=== PATIENT | female | born 2000 | race Caucasian/White ===

== ENCOUNTER 2022-04-18 18:02 | Emergency (ER) | payer OTHER, BC, SELFPAY ==
--- NOTE | ~2022-04-18 | XR_ITS ---
XR foot LT min 3V DATE: 04/18/2022 18:26 INDICATION: Injury last night. Fifth toe and distal fifth metatarsal pain TECHNIQUE: 4 views COMPARISON: None FINDINGS: No fracture or dislocation, periosteal reaction or bone destruction. IMPRESSION: Negative Reviewed, dictated and finalized at location A. IMPRESSION: Negative
--- NOTE | 2022-04-18 18:07 | ED.LOWEXIN ---
HPI - Extremity Injury (Lower) General Chief Complaint: Extremity Injury, Lower Stated Complaint: Lt Foot Pain Time Seen by Provider: 04/18/22 18:06 Source: patient Mode of arrival: ambulatory Limitations: no limitations History of Present Illness HPI Narrative: On exam Krishan is a 21-year-old female patient presenting to clinic today with complaints of left-sided foot pain. She reports she hit her 5th toe, lateral foot on a wooden toy last night. She reports that she was walking at a pretty decent speed when this occurred. She is unaware if she hyperextended the toe or stubbed the toe. There is bruising swelling and redness to the left 5th toe Related Data Home Medications Medication Instructions Recorded Confirmed No Home Medications 04/18/22 04/18/22 Allergies Allergy/AdvReac Type Severity Reaction Status Date / Time No Known Allergies Allergy Verified 04/18/22 18:06 Review of Systems Review of Systems: Pertinent positives per HPI. Patient denies any fever, chills, rash, headache, visual changes, dizziness, cough, runny nose, sore throat, shortness of breath, chest pain, palpitations, nausea, vomiting, diarrhea, constipation, abdominal pain, or any urinary issues. PMFSH Comments At the time of my signature, I reviewed and agree with the nursing past medical, surgical, social, and family history. There is no relevant family history pertinent to the patient complaint. Exam Narrative: General: Well-developed, well nourished, in no apparent distress Head: Normocephalic, atraumatic. Cardio: Regular rate and rhythm, s1 and s2 normal, no murmur appreciated. Resp: Clear to auscultation bilaterally, no rhonchi, rales, wheezing or rubs. Musculoskeletal: No deformity, swelling, redness, and bruising to the left 5th, tender to palpation over the left 5th toe and distal metatarsal, pain with flexion and extension of the left 5th toe otherwise grossly normal range of motion, muscle strength strong and equal, peripheral pulse strong, no cyanosis, normal gait and station Course Course Emergency Course: Portions of this record may have been created with voice recognition software. Level of Care: Express Care Visit Vital Signs Vital signs: Vital Signs Temperature 36.5 C 04/18/22 18:17 Pulse Rate 83 04/18/22 18:17 Respiratory Rate 18 04/18/22 18:17 Blood Pressure 123/72 11/04/22 18:17 Pulse Oximetry 100 04/18/22 18:17 Oxygen Delivery Room Air 04/18/22 18:17 Temperature 36.5 C 04/18/22 18:17 Pulse Rate 83 04/18/22 18:17 Respiratory Rate 18 04/18/22 18:17 Blood Pressure 123/72 04/18/22 18:17 Pulse Oximetry 100 04/18/22 18:17 Oxygen Delivery Room Air 04/18/22 18:17 Vital signs reviewed MDM - Extremity Injury (Lower) MDM Narrative Medical decision making narrative: At the time of visit patient is resting comfortably on the exam table. X-ray was performed and was negative for any fracture or malalignment of the left 5th toe or the left foot. I suspect the patient has a left 5th toe sprain. Supportive measures were discussed with the patient she voiced understanding of discharge instructions and agrees to treatment plan. Fifth toe was sherine-taped to the 4th toe in the clinic today. Differential Diagnosis Differential diagnosis: Likely fracture of toe (Toe sprain) Imaging Data Radiologist's impression: [address] [address] XRay Report Signed Patient: Tiffany Brunner : 2000 MR#: [id number] Age/Sex: 21 / F Acct:[id number] Loc: [facility]? ? ADM Date: 04/18/22Attending Dr: Ordering Physician: Percy John APRN Date of Service: 04/18/22 Procedure(s): XR foot LT min 3V Accession Number(s): [id number] cc: Percy John APRN; RELEASE OF INFORMATION SPECIALIST PHYSICIAN~ XR foot LT min 3V DATE: 04/18/2022 18:26 INDICATION: Injury last night. Fifth toe and distal fifth metat
[2022-04-18 18:17] VITALS: BP 123/72; PULSE 83; RESP 18; TEMP 36.5; O2SAT 100
== END 2022-04-18 18:38 | disposition home or self-care (01) ==
PROVIDERS: Emergency Provider Nurse Practitioner Family
DX: S93.505A Unspecified sprain of left lesser toe(s), initial encounter (principal); W22.8XXA Striking against or struck by other objects, initial encounter
CPT/HCPCS: 73630; 99213; G0463

== ENCOUNTER 2023-09-09 13:22 | Emergency (ER) | payer BC, OTHER, SELFPAY ==
[2023-09-09 13:40] VITALS: BP 129/78; PULSE 101; RESP 16; TEMP 36.4; O2SAT 100
[2023-09-09 13:41] VITALS: BP 129/78; PULSE 101; RESP 16; TEMP 36.4; O2SAT 100
--- NOTE | 2023-09-09 13:50 | ED.URI ---
HPI - URI/Sore Throat General Chief Complaint: Upper Respiratory Infection Stated Complaint: Sore Throat and Congestion Time Seen by Provider: 09/09/23 13:41 Source: patient and RN notes reviewed Mode of arrival: ambulatory Limitations: no limitations History of Present Illness HPI Narrative: Patient presents today complaining of 3-4 day history of sore throat, nasal congestion, cough, sweats and chills. No known fever. No shortness of breath or difficulty swallowing. She has been taking Tylenol with some mild relief. Fourteen weeks currently. Related Data Home Medications Medication Instructions Recorded Confirmed vit#24-iron amino acid 1 tablet PO DAILY 09/09/23 09/09/23 chelat-folic acid 30 mg-975 mcg tablet sertraline 100 mg tablet 100 mg PO DAILY 09/09/23 09/09/23 Allergies Allergy/AdvReac Type Severity Reaction Status Date / Time No Known Allergies Allergy Verified 09/09/23 13:31 Review of Systems Review of Systems: CONSTITUTIONAL: Denies body aches. + fever, sweats, chills EYES: Denies visual changes, redness, or discharge. ENT: Denies rhinorrhea, or otalgia.+ congestion, sore throat CARDIOVASCULAR: Denies chest pain, palpitations, or edema. RESPIRATORY: Denies dyspnea.+ cough GASTROINTESTINAL: Denies abdominal pain, nausea, vomiting, or diarrhea. GENITOURINARY: Denies dysuria or hematuria. SKIN: Denies rash, itching, or wounds. MUSCULOSKELETAL: Denies back pain, joint pain, or myalgia. NEUROLOGIC: Denies headache, numbness, tingling, or weakness. PSYCH: Denies depression or anxiety. PMFSH Comments At time of signature, I have reviewed and agree with nursing past medical, surgical, social and family history unless otherwise noted. Please see nursing chart for further information. There is no relevant family history pertinent to the presenting complaint Exam Narrative: GENERAL: Mildly ill-appearing, well-nourished, and in no acute distress. HEAD: Normocephalic, atraumatic. EYES: EOMI. No redness or drainage. Conjunctivae normal. ENT: Mucous membranes pink and moist. Nares congested. No rhinorrhea. TMs normal bilaterally. Throat normal. Uvula midline. NECK: Normal AROM. Supple. No lymphadenopathy. CHEST: No respiratory distress. Clear to auscultation. HEART: Regular rate and rhythm. No murmur appreciated. EXTREMITIES: Normal range of motion. No edema. SKIN: Warm, dry, no rash. Capillary refill normal. Normal skin turgor. NEURO: No focal deficits. Alert and oriented x3. Gait steady. PSYCH: Normal affect. No signs of depression or anxiety. Course Course Level of Care: Express Care Visit Vital Signs Vital signs: Vital Signs Temperature 97.6 F 09/09/23 13:40 Pulse Rate 101 H 09/09/23 13:40 Respiratory Rate 16 09/09/23 13:40 Blood Pressure 129/78 09/09/23 13:40 Pulse Oximetry 100 09/09/23 13:40 Oxygen Delivery Room Air 09/09/23 13:40 Temperature 97.6 F 09/09/23 13:41 Pulse Rate 101 H 09/09/23 13:41 Respiratory Rate 16 09/09/23 13:41 Blood Pressure 129/78 09/09/23 13:41 Pulse Oximetry 100 09/09/23 13:41 Oxygen Delivery Room Air 09/09/23 13:41 Reviewed MDM - URI/Sore Throat MDM Narrative Medical decision making narrative: Rapid strep negative. Culture pending. Patient declines testing for COVID and influenza. Symptoms likely viral in etiology. Discussed [id number] medication use and duration of illness. No prescription medications indicated at this time. Anticipatory guidance given Differential Diagnosis Differential diagnosis: Likely upper respiratory infection, sinusitis, viral infection, bronchitis, influenza, pharyngitis and other (Strep throat, COVID) Lab Data Attestation: I reviewed the patient's lab results. Lab results narrative: Rapid strep negative Critical Care Time Critical Care Time Critical Care Time: No Discharge Plan Discharge Clinical Impression: Viral syndrome
== END 2023-09-09 13:53 | disposition home or self-care (01) ==
PROVIDERS: Emergency Provider Nurse Practitioner
DX: O98.512 Other viral diseases complicating pregnancy, second trimester (principal); B33.8 Other specified viral diseases; Z3A.14 14 weeks gestation of pregnancy; F41.9 Anxiety disorder, unspecified
CPT/HCPCS: 87081; 87880; 99213; G0463

== ENCOUNTER 2024-08-25 18:59 | Emergency (ER) | payer BC, OTHER, SELFPAY ==
--- NOTE | ~2024-08-25 | XR_ITS ---
XR toe 2nd RT min 2V Ordering provider: Sophy Mireles NP History: . pain and swelling . Comparison: None. FINDINGS: BONES: Fracture of the bases of the middle phalanx of the second toe. JOINT SPACES: Normal. SOFT TISSUES: Normal. IMPRESSION: Undisplaced fracture at the base of the middle phalanx of the second toe. Reviewed, dictated and finalized at location A.
--- OUTSIDE RECORDS SUMMARY | 2024-08-25 19:02 | XMS_ITS | Clinical Summary ---
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 Active butalbital-acet aminophen-caffe ine 50-325-40 MG tablet Take 1 tablet by mouth every 4 (four) hours as needed for Pain. Active escitalopram 20 MG tablet Take 20 mg by mouth in the morning. DIRECTED 04/22/2021 Active Active Problems Problem Noted Date Diagnosed Date Vaginal delivery ([facility]) 11/06/2021 Encounter for elective induction of labor ([facility]) 11/04/2021 Resolved Problems Problem Noted Date Diagnosed Date Resolved Date Sad mood 11/04/2021 11/06/2021 Overview (11/04/2021): Depression Sad mood 11/04/2021 11/06/2021 Overview (11/04/2021): Depression ([facility]) 11/04/2019 11/07/19 HAP (hospital-acquired pneumonia) 06/30/2019 11/06/2021 Hydronephrosis 06/29/2019 11/06/2021 Overview (06/29/2019): 06/29/2019 US kidney: 1. Mild bilateral hydronephrosis seen with positive ureteral jets seen bilaterally in the urinary bladder. Sepsis ([facility]) 06/28/2019 Pyelonephritis 06/28/2019 11/06/2021 19 weeks gestation of ([facility]) 06/28/2019 11/06/2021 Hypokalemia 06/28/2019 11/06/2021 Hypomagnesemia 06/28/2019 11/06/2021 Immunizations Name Administration Dates Next Due Fluzone 6 Months+ Quad (0.5 mL Prefilled Syringe ) 06/01/2018 Family History Relation Status Comments Father Alive Mother Alive Social History Tobacco Use Types Packs/Day Years Used Date Smoking Tobacco: Former Cigarettes Q uit: 12/03/2018 Smokeless Tobacco: Never Alcohol Use Standard Drinks/Week Comments No 0 (1 standard drink = 0.6 oz pur e alcohol) Humiliation, Afraid, Rape, and Kick questionnair e Answer Date Recorded Within the last year, have y ou been afraid of your partner or ex-partner? No 11/04/2021 Within the last year, have y ou been humiliated or emotionally abused in other ways by your partner or ex-partner? No Within the last year, have y ou been kicked, hit, slapped, or otherwise physically hurt by your partner or ex-partner? No 11/04/2021 Within the last year, have y ou been raped or forced to have any kind of sexual activity by your partner or ex-partner? No 11/04/2021 Depression Answer Date Recor ded Last EPDS Total Score 12 11/06/2021 Last EPDS Self Harm Result 11/06 Comments No Sex and Gender Information Value Date Recorded Sex Assigned at Not on file Legal Sex Female 7:36 PM CDT Gender Identity Not on file Sexual Orientation Not on file Last Filed Vital Signs Vital Sign Reading Time Taken Comments Blood Pressure 138/88 11/06/2021 9:39 AM CDT Pulse 69 11/06/2021 9:39 AM CDT Temperature 36.7 C (98 F) 11/06/2021 9:39 AM CDT Respiratory Rate 16 11/06/2021 9:39 AM CDT Oxygen Saturation 100% 11/06/2021 9:39 AM CDT Inhaled Oxygen Concentration - - Weight 83 kg (183 lb) 11/04/2021 2:24 AM CDT Height 149.9 cm (4' 11 ) 11/04/2021 2:24 AM CDT Body Mass Index 36.96 11/04/2021 2:24 AM CDT Plan of Treatment Health Maintenance Due Date Last Done Comments Cervical Cancer Screening Pap Smear (Age 21 to 29) Every 3 Years 2000 Cervical Cancer Screening 2000 Annual Physical 2001 HPV Vaccines (2 - 3-dose series) 01/11/2016 12/14/2015 DTaP, Tdap and Td Vaccines (1 - Tdap) 2017 Hepatitis B Vaccines (1 of 3 - 19+ 3-dose series) 2017 COVID-19 Vaccine ( - 2023- season) 2024 Influenza Adult (#1) 2024 06/01/2018 Hepatitis C Completed 06/01/2018 Chlamydia Screening Females ages 16-24 Discontinued 06/30/2019, 06/01/2018, 10/08/2017, Additional history exists Meningococcal B Vaccine Aged Out No l onger eligible based on patient's age to complete this topic Meningococcal Vaccine Aged Out No guillermo jason eligible based on patient's age to complete this topic Pneumococcal Vaccine: Pediatrics (0 to 5 Years) and At-Risk Patients (6 to 64 Years) Aged Out No longer eligible based on patient's age to complete this topic RSV Immunizations Under 20 Months Aged Out No longer eligible based on patient's age to complete this topic Procedures Procedure Name Priority Date/Time Associated Diagnosis Comments CHLAMYDIA PNEUMONIAE AB IGM Routine 06/30/2019 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 psittaci and Chlamydia trachomatis. IgM titers of 1:10 or greater usually indicate recent infection. This test was developed and its analytical performance characteristics have been determined by [employer] [place], [place]. It has not been cleared or approved by the U.S. Food and Drug Administration. This assay has been validated pursuant to the CLIA regulations and is used for clinical purposes. Test [facility] by [facility] [place], [address] [place] [address] Cosmo Hatfield M.D., Ph.D., Director of Laboratories , CLIA [id number] 06/30/2019 12:5 1 PM 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 Kush Longo MD LABORATORY Final Result Performing Organization Address City/[facility]/ZIP Co de Phone Number [facility] [address] , [place] [phone] * HEPATITIS PANEL,ACUTE (06/01/2018 1:50 PM 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) HEPATITIS B SURFACE AG NON-REACTI VE NON-REACTI VE 06/01/2018 7:54 PM 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 [facility] HEP B CORE IGM NON-REACTI VE NON-REACTI VE 06/01/2018 8:21 PM 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 [facility] HAV IGM NON-REACTI VE NON-REACTI VE 06/01/2018 8:24 PM 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 [facility] HEPATITIS C AB NON-REACTI VE NON-REACTI VE 06/01/2018 8:20 PM 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 [facility] 06/01/2018 1:50 PM 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 Vania Ley MD LABORATORY Final Result Performing Organization Address City/[facility]/ZIP Co de Phone Number [facility] [address] [place] [place] [address], from Last 3 Months or Most Recently Relevant to Health Maintenance Insurance [facility] [facility] Advance Directives * Full Code (Latest Code Status on File) Date Activated Date Inactivated Comments 11/04/2021 1:42 AM 11/06/2021 4:59 PM * Full Code Date Activated Date Inactivated Comments 11/04/2019 12:15 AM 11/04/2019 11:29 PM * Full Code Date Activated Date Inactivated Comments 07/01/2019 7:44 AM 07/04/2019 9:30 PM * Full Code Date Activated Date Inactivated Comments 06/28/2019 2:46 AM 07/01/2019 1:47 AM 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
--- OUTSIDE RECORDS SUMMARY | 2024-08-25 19:02 | XMS_ITS | Data Portability ---
Author Organization [facility] Velteo , [facility] Address [address] [place] [address] Care Team Providers Care Recreation Adviser Name Role Phone [employer] Compliance Auditor Assessment No assessment recorded. Plan of Treatment Reminders Order Date Submit Date Provider Last Modified By Organization Details Last Modified Time Details Appointments None recorded. Lab streptococc us group B, culture, unspecified specimen 2021 [facility], [address] [place], [address], 09:09:10 Referral None recorded. Procedures None recorded. Surgeries None recorded. Imaging None recorded. Medication Orders Zoloft 25 mg tablet 2021 [id number], [address] [place], [place], [id number], 17:36:50 Patient TargetsNo targets recorded. Patient Instructions Encounter Date Encounter Id Patient Instructions Last Modified By Organization Details Last Modified Time 12/03/2021 [id number] edinburgh depression scale* ricenogle Not available 12/17/2021 13:19:41 Care at Home With Your Baby: Care Instructions kthanapandan Not available 12/03/2021 17:36:38 edinburgh depression scale* ricenogle Not available 12/17/2021 13:19:41 control after counseling kthanapandan Not available 12/03/2021 17:36:39 Reason for Referral None Reported. Results Created Date Observation Date Name Description Value Unit Range Abnormal Flag Note LastModifiedBy Organization Detail LastModifiedTime 10/19/19 22 10/21/2021 STREP TOCOC CUS, GROUP B CULTU RE streptococcu s, group B culture SEE NOTE STREP TOCOC CUS, GROUP B CULTU RE Micro Numbe r: [id number] Test Statu s: Final Speci men Sourc e: Vagin al/an orect al Speci men Quali ty: Adequ ate Resul t: No group B Strep tococ cus isola joss Note per CDC guide lines optim al recov ileana is achie celina by swabb ing both the lower vagin a and rectu m (thro ugh the anal sphin cter) . Not Available [facility] [address] , [place], [address], 10/21/2021 09:09:10 11/05/19 22 11/04/2021 CBC WITH DIFF WBC 10.9 x10'3 /uL 4.5-11 .0 Not Available [facility] (Lab) [place], [address], 11/04/2021 03:42:12 11/05/19 22 11/04/2021 CBC WITH DIFF RBC 3.78 x10'6 /uL 4.20-5 .40 low Not Available [facility] (Lab) [place], [address], 11/04/2021 03:42:12 11/05/19 22 11/04/2021 CBC WITH DIFF hemoglobin 10.9 g/dL 12.0-1 6.0 low Not Available [facility] (Lab) [place], [address], 11/04/2021 03:42:12 11/05/19 22 11/04/2021 CBC WITH DIFF hematocrit 32.6 % 38.0-4 8.0 low Not Available [facility] (Lab) [place], [address], 11/04/2021 03:42:12 11/05/1911/04/2021 CBC WITH DIFF MCV 86.2 fL 81.0-9 9.0 Not Available [facility] (Lab) [address], [place], [address], 11/04/2021 03:42:12 11/05/1911/04/2021 CBC WITH DIFF MCH 28.8 pg 27.0-3 1.0 Not Available [facility] (Lab) [address], [place], [address], 11/04/2021 03:42:12 11/05/1911/04/2021 CBC WITH DIFF MCHC 33.4 g/dL 32.0-3 6.0 Not Available [facility] (Lab) [address], [place], [address], 11/04/2021 03:42:12 11/05/1911/04/2021 CBC WITH DIFF RDW 14.5 % 11.5-1 4.5 Not Available [facility] (Lab) [address], [place], [address], 11/04/2021 03:42:12 11/05/1911/04/2021 CBC WITH DIFF platelet count 245 x10'3 /uL 130-40 0 Not Available [facility] (Lab) [address], [place], [address], 11/04/2021 03:42:12 11/05/1911/04/2021 CBC WITH DIFF MPV 9.2 fL 9.3-12 .2 low Not Available [facility] (Lab) [address], [place], [address], 11/04/2021 03:42:12 11/05/19 22 11/04/2021 CBC WITH DIFF diff type AUTOMA JOSS DIFFER ENTIAL Not Available [facility] (Lab) [address], [place], [address], 11/04/2021 03:42:12 11/05/19 22 11/04/2021 CBC WITH DIFF neutrophils 67.2 % Not Available [facility] (Lab) [address], [place], [address], 11/04/2021 03:42:12 11/05/1911/04/2021 CBC WITH DIFF lymphocytes 24.8 % Not Available [facility] (Lab) [address], [place], [address], 11/04/2021 03:42:12 11/05/19 22 11/04/2021 CBC WITH DIFF monocytes 6.5 % Not Available [facility] (Lab) [address], [place], [address], 11/04/2021 03:42:12 11/05/19 22 11/04/2021 CBC WITH DIFF eosinophils 0.5 % Not Available [facility] (Lab) [address] [place], [address], 11/04/2021 03:42:12 11/05/1911/04/2021 CBC WITH DIFF basophils 0.4 % Not Available [facility] (Lab) [address], [place], [address], 11/04/2021 03:42:12 11/05/1911/04/2021 CBC WITH DIFF immature granulocytes 0.6 % Not Available [facility] (Lab) [address], [place], [address], 11/04/2021 03:42:12 11/05/19 22 11/04/2021 CBC WITH DIFF abs. neutrophils 7.33 x10'3 /uL 1.80-7 .70 Not Available [facility] (Lab) [address], [place], [address], 11/04/2021 03:42:12 11/05/19 22 11/04/2021 CBC WITH DIFF abs. lymphocytes 2.71 x10'3 /uL 1.00-4 .80 Not Available [facility] (Lab) [address], [place], [address], 11/04/2021 03:42:12 11/05/19 22 11/04/2021 CBC WITH DIFF abs. monocytes 0.71 x10'3 /uL 0.24-0 .86 Not Available [facility] (Lab) [address], [place], [address], 11/04/2021 03:42:12 11/05/19 22 11/04/2021 CBC WITH DIFF abs. eosinophils 0.06 x10'3 /uL 0.04-0 .36 Not Available [facility] (Lab) [address], [place], [address], 11/04/2021 03:42:12 11/05/19 22 11/04/2021 CBC WITH DIFF abs. basophils 0.04 x10'3 /uL 0.01-0 .08 Not Available [facility] (Lab) [place], [address], 11/04/2021 03:42:12 11/05/19 22 11/04/2021 CBC WITH DIFF abs. immature grans 0.07 x10'3 /uL 0.00-0 .49 Not Available [facility] (Lab) [place], [address], 11/04/2021 03:42:12 11/05/1911/04/2021 UA REFLE X TO MICRO specimen type URINE CLEAN CATCH Not Available [facility] (Lab) [address] [place], [address], 11/04/2021 03:46:10 11/05/19 22 11/04/2021 UA REFLE X TO MICRO color LIGHT YELLOW Not Available [facility] (Lab) [place], [address], 11/04/2021 03:46:10 11/05/19 22 11/04/2021 UA REFLE X TO MICRO clarity TURBID Not Available [facility] (Lab) [place], [address], 11/04/2021 03:46:10 11/05/19 22 11/04/2021 UA REFLE X TO MICRO specific gravity 1.011 1.001- 1.030 Not Available [facility] (Lab) [address] [place], [address], 11/04/2021 03:46:10 11/05/19 22 11/04/2021 UA REFLE X TO MICRO pH, urine 6.5 5.0-9. 0 Not Available [facility] (Lab) [address] [place], [address], 11/04/2021 03:46:10 11/05/19 22 11/04/2021 UA REFLE X TO MICRO leukocytes 500 neg abnormal Not Available [facility] (Lab) [place], [address], 11/04/2021 03:46:10 11/05/1903 1111/04/2021 UA REFLE X TO MICRO nitrite NEGATI VE neg Not Available [facility] (Lab) [address] [place], [address], 11/04/2021 03:46:10 11/05/19 22 11/04/2021 UA REFLE X TO MICRO protein 10 mg/dL <30 Not Available [facility] (Lab) [place], [address], 11/04/2021 03:46:10 11/05/1911/04/2021 UA REFLE X TO MICRO glucose NORMAL mg/dL norm Not Available [facility] (Lab) [place], [address], 11/04/2021 03:46:10 11/05/19 22 11/04/2021 UA REFLE X TO MICRO ketone NEGATI VE mg/dL neg Not Available [facility] (Lab) [place], [address], 11/04/2021 03:46:10 11/05/19 22 11/04/2021 UA REFLE X TO MICRO urobilinogen NORMAL mg/dL norm Not Available [facility] (Lab) [place], [address], 11/04/2021 03:46:10 11/05/19 22 11/04/2021 UA REFLE X TO MICRO bilirubin NEGATI VE mg/dL neg Not Available [facility] (Lab) [place], [address], 11/04/2021 03:46:10 11/05/19 22 11/04/2021 UA REFLE X TO MICRO blood NEGATI VE neg Not Available [facility] (Lab) [address] [facility], [place], [address], 11/04/2021 03:46:10 11/05/19 22 11/04/2021 UA REFLE X TO MICRO mucous RARE /lpf Not Available [facility] (Lab) [address] [place], [address], 11/04/2021 03:46:10 11/05/19 22 11/04/2021 UA REFLE X TO MICRO WBC 60 /hpf <6 high Not Available [facility] (Lab) [address] [place], [address], 11/04/2021 03:46:10 11/05/19 22 11/04/2021 UA REFLE X TO MICRO RBC 10 /hpf <6 high Not Available [facility] (Lab) [address] [facility], [place], [address], 11/04/2021 03:46:10 11/05/19 22 11/04/2021 UA REFLE X TO MICRO bacteria MODERA TE /hpf none abnormal Not Available [facility] (Lab) [address] [place], [address], 11/04/2021 03:46:10 11/05/19 22 11/04/2021 UA REFLE X TO MICRO squamous epithelial MODERA TE /hpf Not Available [facility] (Lab) [address] [place], [address], 11/04/2021 03:46:10 11/05/19 22 11/04/2021 DRUGS OF ABUSE PANEL , URINE amphetamines , urine NEGATI VE neg Not Available [facility] (Lab) [place], [address], 11/04/2021 03:50:43 11/05/19 22 11/04/2021 DRUGS OF ABUSE PANEL , URINE barbituates, urine NEGATI VE neg Not Available [facility] (Lab) [address] [facility], [place], [address], 11/04/2021 03:50:43 11/05/19 22 11/04/2021 DRUGS OF ABUSE PANEL , URINE benzodiazapi zahra, urine NEGATI VE neg Not Available [facility] (Lab) [address] [facility], [place], [address], 11/04/2021 03:50:43 11/05/19 22 11/04/2021 DRUGS OF ABUSE PANEL , URINE cannabinoids /THC, urine NEGATI VE neg Not Available [facility] (Lab) [address] [facility], [place], [address], 11/04/2021 03:50:43 11/05/19 22 11/04/2021 DRUGS OF ABUSE PANEL , URINE cocaine, urine NEGATI VE neg Not Available [facility] (Lab) [address] [facility], [place], [address], 11/04/2021 03:50:43 11/05/19 22 11/04/2021 DRUGS OF ABUSE PANEL , URINE methadone, urine NEGATI VE neg Not Available [facility] (Lab) [address] [facility], [place], [address], 11/04/2021 03:50:43 11/05/19 22 11/04/2021 DRUGS OF ABUSE PANEL , URINE opiates, urine NEGATI VE neg Not Available [facility] (Lab) [address] [facility], [place], [address], 11/04/2021 03:50:43 11/05/19 22 11/04/2021 DRUGS OF ABUSE PANEL , URINE phencyclidin es, urine NEGATI VE neg NOTE: RESUL TS OF THIS DRUG SCREE N SHOUL D BE USED FOR MEDIC AL PURPO SES ONLY AND NOT FOR LEGAL OR EMPLO YMENT PURPO SES. POSIT NAHOMY RESUL TS ARE NOT CONFI RMED. MEDIC ATION S CONTA INING EPHED RINE MAY CAUSE FALSE POSIT NAHOMY AMPHE TAMIN E CALL [phone], LAB, TO REQUE ST CONFI RMATI ON TESTI NG. IF CREAT ININE IS <40 mg/dL . RECOL LECTI ON IS SUGGE STED. AMPHE TAMIN E- 500 NG/ML BRODIE TURAT E- 200 NG/ML BENZO DIAZE PINES - 200 NG/ML THC- 50 NG/ML COCAI NE- 150 NG/ML METHA DONE- 300 NG/ML OPIAT E- 300 MG/ML PCP- 25 NG/ML Not Available [facility] (Lab) [place], [address], 11/04/2021 03:50:43 11/05/1911/04/2021 DRUGS OF ABUSE PANEL , URINE creatinine, urine 76.1 mg/dL 28-217 Not Available [facility] (Lab) [place], [address], 11/04/2021 03:50:43 11/05/1911/04/2021 TYPE AND SCREE N ABO/Rh(D) O POSITI VE Not Available [facility] (Lab) [place], [address], 11/04/2021 05:16:22 11/05/1911/04/2021 TYPE AND SCREE N antibody screen NEGATI VE Not Available [facility] (Lab) [place], [address], 11/04/2021 05:16:22 11/05/19 22 11/04/2021 TYPE AND SCREE N xm expiration 2021,2 359 Not Available [facility] (Lab) [address] [facility], [place], [address], 11/04/2021 05:16:22 11/05/19 22 11/09/2021 [facility] PATHO LOGY path report [facility] [place] [address] Phone : [phone] Fax: Depar tment of Patho logy Patho logy Repor t SURGI TAYLOR FINAL REPOR T Patie nt Name: JOSELYN ECHEVARRIA AMOS NYTres Anjel Gregg seo# : [id number] : 2000 (Age: 21) Locat ion: SE[facility] IF Gende r: F Colle cted Date: 2021 Med Rec #: [id number] Date Recei celina: 2021 Date Repor joss: 2021 Provi manuel: FELECIA MORENO MD Speci men(s ) Place nta and Umbil ical Cord Final Patho logic Diagn osis PLACE NTA AND UMBIL ICAL CORD, 39 WEEKS , VAGIN AL DELIV ILEANA: 531 GRAMS (WEIG HT APPRO PRIAT E FOR STATE D GESTA MAURICE L AGE) MEMBR ANES WITH FEW PIGME NT LADEN MACRO PHAGE S HISTO LOGIC ALLY UNREM ARKAB LE TRIVA SCULA R UMBIL ICAL CORD MATUR E CHORI ONIC VILLI CONSI STENT WITH THIRD TRIME STER DETAC HED SEGME NT OF BLOOD CLOT (6.5 X 5.0 X 2.0 CM) Caridad ctron icall y Romina d Out ALLIS ON T NEO Underwood MD Patho logis t ATB:l c Micro scopi c Descr iptio n: The micro scopi c exami natio n suppo rts the above diagn osis. Clini taylor Histo ry 39 wk0d, proba ble abrup tion, GBS negat nahomy Gross Descr iptio n Recei celina is a singl e forma jennifer-f illed conta iner label ed with the patie nt's name (Gomez Echevarria ), date of (08/13), forma jennifer time 11/04 at 203, and addit ional ly label ed plac enta. The speci men consi sts of a singl eton place nta, 20.0 x 18.0 x 3.5 cm with an eccen trica lly inser joss umbil ical cord, measu ring 41.0 cm in lengt h with a diame ter up to 2.5 cm. The cord is edema tous. Secti oning of the cord revea ls three vesse ls and there are no ident ifiab le true or false knots prese nt. The membr anes are purpl e-watts , semit ransl ucent and have jorge nal inser tion. The surfa ce is purpl e-watts with letitia l vascu latur e and letitia l fibri n depos ition . The mater nal surfa ce is red-t an with intac t cotyl edons and a minim al to no adher ent hemor rhagi c mater ial. Addit ional ly submi tted in the speci men conta iner is a porti on of hemor rhagi c clot that is marke dly friab le and measu res 6.5 x 5.0 x 2.0 cm. There are no ident ifiab le ragge d areas on the mater nal surfa ce of the disc. The montez ed disc weigh s 531 grams . Secti oning of the disc revea ls a red-t an homog eneou s cut surfa ce. Repre senta tive secti ons are submi tted as follo ws: 1 - Membr ane roll 2 - Repre senta tive cord 3-6 - Repre senta tive full- thick ness gross ly unrem arkab le place ntal disc (cont iguou s secti ons in casse ttes 5 and 6) :mohamud [place] Fee Code( s): 85988 Not Available [facility] (Lab) [address] [place], [address], 11/09/2021 12:38:19 10/02/19 22 09/30/2021 imagi ng/di agnos tic resul t No observ ation record ed. saad Rodrigueze [address], [place], [address], 10/14/2021 08:36:16 Result Notes None recorded. Problems Name Problem SNOMED Code Status Onset Date Resolution Date Notes Provider Name and Address Organization Details Recorded Time Pain in female genitali a Completed 201701/29/2018 Dysmenor anastasiya, unspecif ied; Progress : Stable Added By: Latrice Hunt Add to Current Problems : NO ProblemS tatus: Resolve Not Available [facility] 2 22:11:55 Pregnanc y, childbir th and puerperi um finding Completed 201811/22/2019 Encounte r for supervis ion of normal first pregnanc y, second trimeste r; Progress : Stable Added By: Chelsi Oglesby Add to Current Problems : NO ProblemS tatus: Resolve Not Available [facility] 2 22:11:41 Gestatio n period, 24 weeks [id number] Completed 201911/22/2019 24 weeks gestatio n of pregnanc y; Progress : Stable Added By: Kristine Irizarry Add to Current Problems : NO ProblemS tatus: Resolve Not Available [facility] 2 22:11:54 Gestatio n period, 37 weeks [id number] Completed 201911/22/2019 37 weeks gestatio n of pregnanc y; Progress : Stable Added By: Kandice Morejon Add to Current Problems : NO ProblemS tatus: Resolve Not Available [facility] 2 22:11:54 Cyst of ovary 09906646 Active 2017 Unspecif ied ovarian cysts; Progress : Stable Added By: Gem Sierra Add to Current Problems : YES ProblemS tatus: Current Becca Britsch [facility], [place] - [facility] 2 16:34:37 Gestatio n period, 35 weeks [id number] Completed 201911/22/2019 35 weeks gestatio n of pregnanc y; Progress : Stable Added By: Drea Rasmussen Add to Current Problems : NO ProblemS tatus: Resolve Not Available [facility] 2 22:11:47 Pruritic urticari al papules and plaques of pregnanc y [id number] Completed 201811/22/2019 Pruritic urticari al papules and plaques of pregnanc y (PUPPP); Progress : Stable Added By: Drea Sanders Add to Current Problems : NO ProblemS tatus: Resolve Not Available [facility] 2 22:11:57 Urinary tract infectio us disease [id number] Completed 201911/22/2019 Urinary tract infectio n, site not specifie d; Progress : Stable Added By: Phill Stephen Add to Current Problems : NO ProblemS tatus: Resolve Not Available [facility] 2 22:11:38 Infectio ns of kidney in pregnanc y Completed 201911/22/2019 Infectio ns of kidney in pregnanc y, second trimeste r; Progress : Stable Added By: Eveline Cedeño Add to Current Problems : NO ProblemS tatus: Resolve Not Available [facility] 2 22:11:59 Dysmenor anastasiya [id number] Completed 201701/29/2018 Dysmenor anastasiya; Progress : Stable Added By: Latrice Hunt Add to Current Problems : NO ProblemS tatus: Resolve Not Available [facility] 2 22:11:42 Gestatio n period, 17 weeks [id number] Completed 201811/22/2019 17 weeks gestatio n of pregnanc y; Progress : Stable Added By: Kristine Irizarry Add to Current Problems : NO ProblemS tatus: Resolve Not Available [facility] 2 22:11:42 Finding of pattern of menstrua l cycle [id number] Active 2018 Excessiv e and frequent menstrua tion with irregula r cycle; Progress : Stable Added By: Shanta Ward Add to Current Problems : YES ProblemS tatus: Current Beccareji Castaneda null, [place] [facility] 2 16:34:[address] Concept Completed 201710/01/2018 Encounte r for surveill ance of other contrace ptives; Progress : Stable Added By: Edith Sahu Add to Current Problems : NO ProblemS tatus: Resolve Not Available [facility] 2 22:11:53 Lochia finding Active 2019 Encounte r for routine postpart um follow-u p; Progress : Stable Added By: Chelsi Oglesby Add to Current Problems : YES ProblemS tatus: Current Becca Britsch null, [place] [facility] 2 16:34:37 Kym ry postpart um mood disturba nce [id number] Active 2020 Postpart um mood disturba nce; Progress : Stable Added By: Nadeem Santos Add to Current Problems : YES ProblemS tatus: Current Becca Britsch null, [place] [facility] 2 16:34:37 Vulvovag initis 00123484 Active 2017 Other specifie d inflamma tion of vagina and vulva; Severity : Moderate Progress : Stable Added By: Areli Rutledge Add to Current Problems : YES ProblemS tatus: Current Vagintiu s Unspecif ied; Location : None Severity : Moderate Progress : Stable Added By: Angel Dimas Add to Current Problems : YES ProblemS tatus: Resolve Becca Britsch null, [place] [facility] 2 16:34:37 Postpart um depressi on 32909714 Active 2019 Postpart um depressi on; Progress : Stable Added By: Phu Gonsales Add to Current Problems : YES ProblemS tatus: Current celexa Yolis Nicholson null, [place] [facility] 2 10:01:23 Gestatio n period, 31 weeks [id number] Completed 201911/22/2019 31 weeks gestatio n of pregnanc y; Progress : Stable Added By: Kandice Morejon Add to Current Problems : NO ProblemS tatus: Resolve Not Available [facility] 2 22:11:49 Uterine size for dates discrepa ncy Completed 201911/22/2019 Uterine size-taiwo e discrepa ncy, third trimeste r; Progress : Stable Added By: Phu Gonsales Add to Current Problems : NO ProblemS tatus: Resolve Not Available [facility] 2 22:11:57 Sampling of vagina for Papanico laou smear Completed 201811/22/2019 Encounte r for gynecolo gical examinat ion (general ) (routine ) without abnormal findings ; Progress : Stable Added By: Lacey Smiley Add to Current Problems : NO ProblemS tatus: Resolve Not Available [facility] 2 22:11:58 Pregnanc y, childbir th and puerperi um finding Completed 201911/22/2019 Encounte r for supervis ion of normal first pregnanc y, third trimeste r; Progress : Stable Added By: Kandice Morejon Add to Current Problems : NO ProblemS tatus: Resolve Not Available [facility] 2 22:11:54 Follicul ar cyst of ovary 0542336 Completed 201711/30/2018 Ovarian cyst; Progress : Stable Added By: Gem Sierra Add to Current Problems : NO ProblemS tatus: Resolve Follicul ar cyst of ovary, unspecif ied side; Progress : Stable Added By: Gem Sierra Add to Current Problems : NO ProblemS tatus: Resolve Ovarian cyst; Location : None Progress : Stable Added By: Gem Sierra Add to Current Problems : YES ProblemS tatus: Current Not Available [facility] 2 22:11:59 Menometr orrhagia 762452550 Completed 201709/01/2018 Menometr orrhagia ; Progress : Stable Added By: Edith Sahu Add to Current Problems : NO ProblemS tatus: Resolve [facility] 2 22:12:02 Gestatio n period, 10 weeks 60641669 Completed 201811/22/2019 10 weeks gestatio n of pregnanc y; Progress : Stable Added By: Lacey Smiley Add to Current Problems : NO ProblemS tatus: Resolve Not Available [facility] 2 22:11:43 Gestatio n period, 9 weeks 432645 Completed 201811/22/2019 9 weeks gestatio n of pregnanc y; Progress : Stable Added By: Neena Grady Add to Current Problems : NO ProblemS tatus: Resolve Not Available [facility] 2 22:11:41 Gestatio n period, 29 weeks [id number] Completed 201911/22/2019 29 weeks gestatio n of pregnanc y; Progress : Stable Added By: Kristine Irizarry Add to Current Problems : NO ProblemS tatus: Resolve Not Available [facility] 2 22:11:40 Gestatio n period, 13 weeks 95878340 Completed 201811/22/2019 13 weeks gestatio n of pregnanc y; Progress : Stable Added By: Drea Sanders Add to Current Problems : NO ProblemS tatus: Resolve Not Available [facility] 2 22:11:48 Gestatio n period, 32 weeks 5199360 Completed 201911/22/2019 32 weeks gestatio n of pregnanc y; Progress : Stable Added By: Anni Bruce Add to Current Problems : NO ProblemS tatus: Resolve Not Available [facility] 2 22:11:38 Irregula r periods 10411572 Completed 201702/06/2018 Other specifie d irregula r menstrua tion; Progress : Stable Added By: Latrice Hunt Add to Current Problems : NO ProblemS tatus: Resolve Not Available [facility] 2 22:11:48 Finding of menstrua l bleeding Completed 201709/01/2018 Excessiv e and frequent menstrua tion with regular cycle; Progress : Stable Added By: Edith Sahu Add to Current Problems : NO ProblemS tatus: Resolve Not Available [facility] 2 22:11:37 Acute vaginiti s 65838673 Completed 201701/29/2018 Acute vaginiti s; Progress : Stable Added By: Latrice Hunt Add to Current Problems : NO ProblemS tatus: Resolve Not Available [facility] 2 22:11:59 Gestatio n period, 27 weeks [id number] Completed 201911/22/2019 27 weeks gestatio n of pregnanc y; Progress : Stable Added By: Chelsi Oglesby Add to Current Problems : NO ProblemS tatus: Resolve Not Available [facility] 2 22:11:56 Pregnanc y, childbir th and puerperi um finding Completed 201811/22/2019 Encounte r for supervis ion of normal first pregnanc y, first trimeste r; Progress : Stable Added By: Drea Sanders Add to Current Problems : NO ProblemS tatus: Resolve Not Available [facility] 2 22:11:58 Procedur e related to breastfe eding Active 2019 Encounte r for care and examinat ion of lactatin g mother; Progress : Stable Added By: Chelsi Oglesby Add to Current Problems : YES ProblemS tatus: Current Becca Britsch null[place] [facility] 2 16:34:37 Gestatio n period, 20 weeks [id number] Completed 201911/22/2019 20 weeks gestatio n of pregnanc y; Progress : Stable Added By: Bailee Pulliam Add to Current Problems : NO ProblemS tatus: Resolve Not Available [facility] 2 22:11:49 Gestatio n period, 36 weeks 98780539 Completed 201911/22/2019 36 weeks gestatio n of pregnanc y; Progress : Stable Added By: Phill Stephen Add to Current Problems : NO ProblemS tatus: Resolve Not Available [facility] 2 22:11:40 Procedur e Active 2018 Encounte r for surveill ance of implanta ble subderma l contrace ptive; Progress : Stable Added By: Indiana Laurent Add to Current Problems : YES ProblemS tatus: Current Becca Britsch null[place] [facility] 2 16:34:37 Candidia sis 80665959 Active 2020 Candidia sis, unspecif ied; Progress : Stable Added By: Nadeem Santos Add to Current Problems : YES ProblemS tatus: Current Becca Britsch null[place] [facility] 2 16:34:37 Gestatio n period, 33 weeks 74155400 Completed 201911/22/2019 33 weeks gestatio n of pregnanc y; Progress : Stable Added By: Drea Rasmussen Add to Current Problems : NO ProblemS tatus: Resolve Not Available [facility] 2 22:11:43 Pregnanc y 36163791 Completed 202001/17/2022 Yolis Nicholson null, [facility] 2 10:01:28 Antenata l screenin g Active 2020 Encounte r for antenata l screenin g for Streptoc occus B; Progress : Stable Added By: Phill Stephen Add to Current Problems : NO ProblemS tatus: Resolve; Start Date : 10/24/19 20 Encou nter for other specifie d antenata l screenin g; Progress : Stable Added By: Drea Rasmussen Add to Current Problems : YES ProblemS tatus: Current Becca Britsch null, [facility] 2 16:34:37 Gestatio n less than 9 weeks 542419977 Active 2020 Less than 8 weeks gestatio n of pregnanc y; Progress : Stable Added By: Drea Rasmussen Add to Current Problems : YES ProblemS tatus: Current [place]sch [place] [facility] 2 16:34:37 Antenata l screenin g for malforma tion Completed 201911/22/2019 Encounte r for antenata l screenin g for malforma tions; Progress : Stable Added By: Bailee Pulliam Add to Current Problems : NO ProblemS tatus: [facility] 2 22:11:38 Depressi on screenin g Active 2019 Encounte r for screenin g for maternal depressi on;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 140 Fetus Movement A Yes Comments gbs today Flowsheet Date 10/25/2021 Pierson Score Blood Edema Fundus Height Fundus Units Glucose Ketones Leukocytes Nitrite Labor Signs Protein Cervic Dilation Cervic Effacement Cervic Station 37 none neg Type Weight in lbs Pre/Post Dialysis Refused Weight 182.811267907089 BP Diastolic BP Location Tested BP Systolic BP Type 74 130 Fetus Heart Rate Present A 140 Fetus Movement A Yes Comments stes at 0100, 1st one was 5l b 5oz Flowsheet Date 11/01/2021 Pierson Score Blood Edema Fundus Height Fundus Units Glucose Ketones Leukocytes Nitrite Labor Signs Protein Cervic Dilation Cervic Effacement Cervic Station none neg Type Weight in lbs Pre/Post Dialysis Refused Weight 183.970591434710 BP Diastolic BP Location Tested BP Systolic BP Type 80 122 sitting Fetus Heart Rate Present Fetus Movement Comments Scheduled for IOL Flowsheet Date 12/03/2021 Pierson Score Blood Edema Fundus Height Fundus Units Glucose Ketones Leukocytes Nitrite Labor Signs Protein Cervic Dilation Cervic Effacement Cervic Station Type Weight in lbs Pre/Post Dialysis Refused Weight 153.737888790837 BP Diastolic BP Location Tested BP Systolic BP Type 72 124 Fetus Heart Rate Present Fetus Movement Comments Menstrual History Last Menstrual Date Menses Monthly On Bcp Conception Prior Menses Frequency Hcg Plus Date Menarche Onset Age 0802/04/2021 true Genetic Screening And Infection History Question Response Note Patient's Age Will Be 35 Years Or Older At Estim ated Date of Delivery false Delivery Information Delivery Date Delivery Type Labor Anesthesia Weeks Gestation Incision Type Labor Labor Length Hrs Delivered By Post Complications Tubal Sterilization Discharge Date Comments 2 [facility] Brittny Fishman CNM None Discharge Information Feeding Method Contraceptive Method Maternal HG B and HCT Levels
--- OUTSIDE RECORDS SUMMARY | 2024-08-25 19:02 | XMS_ITS | Encounter Summary ---
Author Organization [facility] Address [facility] [place] [address] Care Team Providers Care College Coach Name Role Phone Vania Ley MD Primary Care Provider [phone] Encounter Details Date Type Department Care Team ([facility] Contact Info) Description 11/08/2021 Hospital Follow-up Call [facility] [place] [address] Leonela Wang, RN Social History Tobacco Use Types Packs/Day Years [...] on file Sexual Orientation Not on file COVID-19 Exposure Response Date Recorded In the last 10 days, have yo u been in contact with someone who was confirmed or suspected to have Coronavirus/COVID-19? No / Unsure 11/04/2021 2:15 AM CDT documented as of this encounter Functional Status * RETIRED Are you deaf or do you have serious difficulty hearing Answer Date of Assessment Author Status No 11/04/2021 2:24 AM CDT Activ e * RETIRED Are you blind or do you have serious difficulty seeing, even when wearing glasses? Answer Date of Assessment Author Status No 11/04/2021 2:24 AM CDT Activ e * Do you have serious difficulty walking or climbing stairs? Answer Date of Assessment Author Status No 11/04/2021 2:24 AM CDT Vanessa Ferreira R N Active * Do you have difficulty dressing or bathing? Answer Date of Assessment Author Status No 11/04/2021 2:24 AM CDT Vanessa Ferreira R N Active * Because of a physical, mental, or emotional condition, do you have difficulty doing errands alone such as visiting a doctor's office or shopping? Answer Date of Assessment Author Status No 11/04/2021 2:24 AM CDT Vanessa Ferreira R N Active documented as of this encounter Mental Status * Because of a physical, mental, or emotional condition, do you have serious difficulty concentrating, remembering, or making decisions? Answer Entry Date Author Status No 11/04/2021 2:24 AM CDT Vanessa Ferreira R N Active documented in this encounter Plan of Treatment Not on file documented as of this encounter Visit Diagnoses Not on filedocumented in this encounter Care Teams College Coach Relationship Specialty Start Date End Date Vania Ley MD PCP - General 01/06/17 documented as of this encounter
--- OUTSIDE RECORDS SUMMARY | 2024-08-25 19:02 | XMS_ITS | Referral Summary ---
Author Organization [facility] Address [address] [place] [address] Care Team Providers Care Environmental Programs Specialist Name Role Phone No, Physician Primary Care Provider [phone] No, Physician Unavailable Allergies No known active allergies Medications vit no.124/iron/fol ic ( VITAMIN ORAL) Take by mouth Active sertraline (ZOLOFT) 100 mg tablet Take 1.5 tablets (150 mg total) by mouth daily 60 tablet 8 4 Active hydrOXYzine (ATARAX) 10 mg tabletIndicatio ns:anxiety Take 1 tablet (10 mg total) by mouth 3 (three) times a day as needed for itching 30 tablet 2 4 Active hydrOXYzine (ATARAX) 25 mg tabletIndicatio ns:anxiety Take 1 tablet (25 mg total) by mouth 3 (three) times a day as needed for anxiety 90 tablet 3 5 Active hydrOXYzine (ATARAX) 25 mg tabletIndicatio ns:anxiety Take 1 tablet (25 mg total) by mouth 3 (three) times a day as needed for anxiety 90 tablet 3 4 08/19/19 25 Discontinu ed(Reorder ) Active Problems Problem Noted Date Diagnosed Date care following vaginal delivery 02/23 Overview (02/24/2024): 02/24/2024 PPD #1 (CZ) 23 yo s/p of viable male . VSS, afebrile O+, Rubella Immune Hgb: 10.6>9.9 QBL: 25 Depression: Zoloft 100 mg daily Plan two week mood check with Ellie gHTN: labs WNL Plan BP check on Thursday Mom and baby doing well Normal exam Ambulating, voiding, and tolerating PO. 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 female at 38w3d who is dated by 1st trimester ultrasound and is being admitted for an induction of labor secondary to decreased movement at term and deceleration on heart tracing . Admit to L&D: Consents signed and placed in chart. Labs: O+. Hgb:10.6 . Induction of labor with pitocin . -- VSS, AF - MR BP x 1 -- OT turned off after prolonged deceleration FWB: Continuous monitoring. tracing category II, reassured by moderate variability and accelerations present . ID: 3rd trimester HIV (>28 wga) negative on 12/27. GBS negative on 02/03 . RPR on admission: negative. History of genital HSV or HSV 1/2 seropositivity: No. Membrane Status: AROM at 02/21 on 2147 , light meconium stained fluid Indications for UDS: none. Verbal consent obtained for UDS: Not indicated. MOF: Plans to breastfeed. Urine drug screen not indicated. Patient informed of results: N/A. MOC: Partner deployed - considering partner vasectomy Pain management: Undecided on epidural. Reviewed pain management options and alternative coping techniques Post DVT prophylaxis: The patient has the following MAJOR risk factors none and the following MINOR risk factors BMI 30-39 and parity >/=3. SCDs will be ordered for VTE prophylaxis . Depression: sertraline 100 mg daily. Peds aware and will be present for delivery Obesity Velamentous cord insertion: EFW 49%ile 02/22/2024, 2315 (RADHA): Called to bedside for FHT deceleration, prolonged and VD /VSS, AF Pt reporting stronger contractions, breathing well through out Attempted to place internal monitors with patient consent, exam terminated per provider d/t patient discomfort Discussed pain options -small dose of IV vs epidural - pt desires epidural Repositioned to hands and knees while preparing for epidural Will attempt internal monitor placement once comfortable with epidural Consider amnioinfusion for VDs 02/22/2024, 0230 (RADHA): Pt progressed to complete and very uncomfortable VSS, AF Epidural infusing but has not provided adequate relief FHT Cat 2 Briefly discussed with patient recommendation to proceed with pushing given distress Anticipate Dr. Batista updated and OBHD aware Obesity affecting , antepartum 01/05/20 24 Velamentous insertion of umbilical cord, antepar ralph 01/05/2024 Class 1 obesity with body ma ss index (BMI) of 30.0 to 30.9 in adult 10/19/2023 Mild major depression 10/02/2023 Chronic anxiety 08/28/2023 Resolved Problems Problem Noted Date Diagnosed Date Resolved Date Diarrhea of infectious origin 10/02/2023 10/19/2023 Overview (10/02/2023): 10/02/2023, 0800 (Shira) On review of patient's hospital course, vitals and labs more consistent with dehydration in the setting of diarrhea and emesis. She technically meets SIRS criteria (WBC 19, HR 105, lactate 3), but making adjustments for physiology of , lower concern for sepsis. Patient has continued to be afebrile. Elevated lactate and WBC have resolved with fluid hydration There had been concern for pyelonephritis, but afebrile and normal kidney US. Urine culture not sent and no indication to send now as she has received IV antibiotics Some concern for possible colitis given GI symptoms, but stool culture negative RVP and blood cultures negative Overall consistent with viral gastroenteritis, but will cover for colitis with azithromycin 500 mg daily x 3 days As she is having pain after eating, will obtain RUQ US. If normal and patient is able to tolerate PO with breakfast, plan discharge home later today. Sepsis 09/30/2023 10/19/2023 Overview (10/01/2023): 09/30/23 @ 21:00 (BD): - Sepsis with lactic acidosis 2/2 to suspected colitis vs pyelonephritis - 1g ceftriaxone daily - Daily labs (CBC, CMP, Lactate) - Blood cultures - pending; Urine Cx - pending - Vaginitis - collected - respiratory panel - flu, covid, RSV - neg - renal US - unremarkable; consider CT imaging - indicated if not clinically improving or worsening - s/p 3L of fluid in ED, continue monitor strict I&Os and continue to fluid resuscitate as indicated, maint LR @ 125mls/hr - zofran - PRN for nausea - clear liquid diet, as tolerated - daily FHT - OB record marked for merge - see below for care details 10/01/2023 HD #1 (CZ) VSS, afebrile Labs WNL/Improving WBC 14.1>12.9 Hgb: 14.1>12.9 Lactate: 3.5>1.9>1.1 AST 23>20 ALT 24 > 20 CR 0.50 Patient reports feeling better with medication and fluids She reports some vaginal bleeding when she wipes Speculum exam negative for bleeding Cervix visually closed Vaginitis and GC/CT swabs collected Bedside ultrasound performed Visible cardiac and movement Diet changed to Regular for advancement of diet Blood cultures pending Consider D/C tomorrow if stable. Normal intrauterine , antepartum 09/30/2023 10/19/2023 Overview (09/30/2023): Surveillance of *Proof Carrier Patient* Datin week sono Labs: O+/Immune/-/-/- HIV NR RPR NR Genetics: LR NIPT STI - 09/24, negative Pap: NILM (-) Anatomy: 20 weeks GCT: 26-28 weeks 3rd trim CBC/HIV/RPR Tdap: 27+ weeks GBS: 36 weeks, or sooner if early delivery indicated COVID Vaccine Social Barriers: MOF: MOC: Delivery Planning: desires low intervention, expectant management Obesity: T1 BMI 31. Early GCT - passed. Consider T3 growth sonogram History of pre-eclampsia in both G1 and G2: baseline labs wnl, dASA 13 weeks - delivery is deployed - will be mindful if scheduling induction Depression: Initial OB EPDS: 6, sertraline 100 mg Questionable history of shoulder dystocia - in G2, says she moved a little and he came out, 7lb4oz. Delivery record requested (2021, [facility]) Lactic acidosis 09/30/2023 10/19/2023 Supervision of other normal , antepartum 08/28/2023 10/19/2023 History of pre-eclampsia 08/28/202311/2023 Immunizations Immunization Administration Dates Next Due HPV, Quadrivalent 12/14/2015 Influenza, Quadrivalent, Spl it, Preservative Free, Intramuscular 06/01/2018 MMR 02/24/2024(Deferred: Contraindic ation) Tdap 02/24/2024(Deferred: Patient Ref used) Varicella 02/24/2024(Deferred: Patient Ref used) Social History Tobacco Use Types Packs/Day Years Used Date Smoking Tobacco: Never Smokeless Tobacco: Never Tobacco Cessation:Counseling Given: Not Answered [facility] Utilities Answer Date Recorded In the past 12 months has e [employer], gas, oil, or water Gather threatened to shut off services in your home? No 10/01/2023 Social Connection and Isolat ion Panel [NHANES] Answer Date Recorded In a typical week, how many times do you talk on the phone with family, friends, or neighbors? More than three times a week 02/22/2024 How often do you get togethe r with friends or relatives? More than three times a week 02/22/2024 How often do you attend chur ch or taoist services? Never 02/22/2024 Do you belong to any clubs o r organizations such as amish groups, unions, fraternal or athletic groups, or school groups? No 02/22/2024 How often do you attend meet ings of the clubs or organizations you belong to? Never 02/22/2024 Are you , , di vorced, , never , or living with a partner? 02/22/2024 AUDIT-C Answer Date Recorded Frequency of Alcohol Consumption Not on file 02/22/2024 Q2: How many drinks containi ng alcohol do you have on a typical day when you are drinking? Patient does not drink Q3: How often do you have si x or more drinks on one occasion? Never 02/22/2024 Overall Financial Resource Strain (CARDIA) Answe r Date Recorded How hard is it for you to pa y for the very basics like food, housing, medical care, and heating? Not very hard 02/22/2024 [facility] - Occupational Stress Questionnaire Answer Date Recorded Do you feel stress - tense, restless, nervous, or anxious, or unable to sleep at night because your mind is troubled all the time - these days? Only a little 02/22/2024 Exercise Vital Sign Answer Date Recorde d On average, how many days pe r week do you engage in moderate to strenuous exercise (like a brisk walk)? Patient declined Minutes of Exercise per Session Not on file 02/22/2024 Hunger Vital Sign Answer Date Recorded Within the past 12 months, y ou worried that your food would run out before you got the money to buy more. Never true 02/22/20 24 Within the past 12 months, t he food you bought just didn't last and you didn't have money to get more. Never true 02/22/2024 PRAPARE - Transportation Answer Date Re corded In the past 12 months, has l ack of transportation kept you from medical appointments or from getting medications? No 02/2024 In the past 12 months, has l ack of transportation kept you from meetings, work, or from getting things needed for daily living? No 02/22/2024 Housing Stability Vital Sign Answer Taran e Recorded In the last 12 months, was t here a time when you were not able to pay the mortgage or rent on time? No 10/01/2023 In the last 12 months, how many places have you lived? 1 10/01/2023 In the last 12 months, was t here a time when you did not have a steady place to sleep or slept in a usp (including now)? No 10/01/2023 [place] Depression Scale Answer Date Recorded [place] Depression Scale Total 6 04/07/2024 The thought of harming myself has occurred to me . Never 04/07/2024 Housing Stability Vital Sign Answer Taran e Recorded In the last 12 months, was t here a time when you were not able to pay the mortgage or rent on time? No 02/22/2024 Number of Times Moved in the Last Year Not on fi le 02/22/2024 At any time in the past 12 m [facility], were you homeless or living in a usp (including now)? No 02/22/2024 Personal Safety Answer Date Recorded Have you ever been in or are you currently in a harmful physical or emotional relationship or is someone making you feel afraid or unsafe? Denies 02/22/2024 Comments No Sex and Gender Information Value Date Recorded Sex Assigned at Not on file Legal Sex Female 8:44 PM MICROSCOPIST Gender Identity Female 09/09/2023 5:58 PM CDT Sexual Orientation Not on file Last Filed Vital Signs Vital Sign Reading Time Taken Comments Blood Pressure 110/66 04/07/2024 11:40 AM CDT Pulse 84 02/24/2024 9:30 AM CDT Temperature 36.3 C (97.4 F) 02/24/2024 9:30 AM CDT Respiratory Rate 16 02/24/2024 9:30 AM CDT Oxygen Saturation 100% 02/24/2024 9:30 AM CDT Inhaled Oxygen Concentration - - Weight 72.1 kg (159 lb) 04/07/2024 11:40 AM CDT Height 149.9 cm (4' 11 ) 04/07/2024 11:40 AM CDT Body Mass Index 32.11 04/07/2024 11:40 AM CDT Plan of Treatment Not on file Procedures Procedure Name Priority Date/Time Associated Diagnosis Comments HEPATITIS C ANTIBODY Routine 08/28/2023 3:31 PM CDT Encounter for supervision of normal in first trimester, unspecified PAP WITH REFLEX TO HIGH RISK HPV Routine 08/28/2023 1:38 PM CDT Encounter for supervision of normal in first trimester, unspecified Screening for cervical cancer from Last 3 Months or Most Recently Relevant to Health Maintenance Results * Hepatitis C antibody Blood (08/28/2023 3:31 PM CDT) Hep C Ab Nonreactive Nonreactive Comment: Antibodies to HCV not detected. Does NOT exclude the possibility of recent exposure to HCV. Current interpretive data was last revised on 22 Interpretive Data Nonreactive: Antibodies to HCV not detected. Does NOT exclude the possibility of recent exposure to HCV. Equivocal: Equivocal for HCV antibodies. Supplemental molecular testing will be automatically performed to determine infection status in accordance with current CDC screening recommendations. Reactive: Positive for HCV antibodies. This may represent current or past HCV infection. Supplemental molecular testing will be automatically performed to determine current infection status in accordance with current CDC screening recommendations. Interpretive data was last revised on 2019. Blood 08/28/2023 3:31 PM CDT 08/28/2023 6:26 PM CDT us Heidi Rogers MD LAB MICROBIOLOGY - GENERAL ORD ERABLES Edited Result - Final [facility] [address] [facility] Department of Laboratories [place], [place] [id number] * Pap with reflex to High Risk HPV and Genotyping (Cytology Component) (08/28/2023 1:38 PM CDT) Thin prep (Pap test) 08/28/2023 1:38 PM CDT 08/30/2023 10:41 PM CDT Narrative PATHOLOGY [facility] - 09/02/2023 8:45 AM CDT EPIC results best viewed via link to PDF [facility] of Surgical [place] [address] Note to Patients: This report may contain a detailed description of human tissue sent by a health care provider to the laboratory for pathologic evaluation. The content of this report is essential for diagnosis and may provide important critical findings. This information may be unfamiliar to patients to review without a medical professional present. It is advised that the patient review this report in the presence of a health care provider who can answer questions and explain the details. CYTOPATHOLOGY REPORT FINAL Patient Name: TIFFANY BRUNNER Gender: F : 2000 (Age: 23) Address: [place] [address] [facility] #: [id number] Service: DEFAULT Location: Patient Type: MHE SPECIMEN Taken: 08/28/2023 Received: 08/30/2023 Accessioned: 08/31/2023 Reported: 09/02/2023 Physician(s): Heidi Rogers M.D. FINAL INTERPRETATION SOURCE OF SPECIMEN Liquid based Thin Prep pap with Reflex HPV: STATEMENT OF ADEQUACY - Satisfactory for evaluation - Endocervical cells/transformation zone sample present GENERAL CATEGORIZATION: - Negative for squamous intraepithelial lesion or malignancy osie/09/02/2023 08:45 EUGENE Patel(ASCP) Report Electronically Reviewed and Signed Out By EUGENE Patel(ASCP) 09/02/2023 08:45:12 Cervicovaginal Cytology (Pap Test) Disclaimer: The Pap test is a screening test used to detect cervical cancer and its precursors; it is not a diagnostic procedure. False negative and false positive results do occur. Pap test results should be interpreted in the context of pertinent clinical information and biopsy results as indicated. [facility] Clinical Laboratory Improvement Amendments (CLIA) mandate that cytologic and histologic results be correlated for laboratory aerospace quality engineer & improvement standards. FOR ALL HIGH-GRADE CASES we request submission of follow-up histological material and/or reports that have not been previously provided so that we may fulfill said required standards. Gross Description A. Liquid based Thin Prep pap with Reflex HPV: Cervical/vaginal - Screening ThinPrep Clinical Diagnosis and History Last Menstrual Period: unknown None given Report Images and scanned documents, if included only viewable in PDF version The performance characteristics of some immunohistochemical stains, in-situ hybridization and fluorescence in-situ hybridization tests and immunophenotyping by flow cytometry cited in this report (if any) were determined by the Surgical Pathology Department at [facility] as part of an ongoing clinical quality assurance specialist program and in compliance with federally mandated regulations drawn from the Clinical Laboratory Improvement Act of 1988 (CLIA '88). Some of these tests rely on the use of analyte specific reagents and are subject to specific labeling requirements by the US Food and Drug Administration. Such diagnostic tests may only be performed in a facility that is certified by the Department of Health and Human Services as a high complexity laboratory under CLIA '88. The FDA has determined that such clearance or approval is not necessary. This test is used for clinical purposes. It should not be regarded as investigational or for research. Nevertheless, federal rules concerning the medical use of analyte specific reagents require that the following disclaimer be attached to the report: This test was developed and its performance characteristics determined by the Surgical Pathology Department of [facility]. It has not been cleared or approved by the U. S. Food and Drug Administration. Heidi Rogers MD LAB CYTOLOGY ORDERABLES Final Result [facility] from Last 3 Months or Most Recently Relevant to Health Maintenance Insurance Talk Local [facility] Address: [address] [place] [address] [facility] [place] [place] [address] [facility] Address: [address] [place] [address] [facility] ACCESS CHOICE [facility] Address: [address] [place] [address] [facility] Advance Directives For more information, please contact: [phone] * Full Code (Latest Code Status on File) Date Activated Date Inactivated Comments 02/23/2024 4:28 AM 02/24/2024 6:31 PM * Full Code Date Activated Date Inactivated Comments 02/22/2024 4:50 PM 02/23/2024 4:28 AM Full CPR in c ase of cardiopulmonary arrest * Full Code Date Activated Date Inactivated Comments 09/30/2023 9:38 PM 10/02/2023 6:50 PM Care Teams Environmental Programs Specialist Relationship Specialty Start Date End Date No, Physician PCP - General 09/09/23 No, Physician 09/09/23
--- OUTSIDE RECORDS SUMMARY | 2024-08-25 19:02 | XMS_ITS ---
Author Organization [facility] Address [address] [place] [address] Care Team Providers Care Comb Machine Operator Name Role Phone Jessica Reyna Primary Care Provider REASON FOR VISIT 2 Month Psych F/U & Med Refill Encounters Encounter Location Date Provider Diagnosis [address] [place] [address] 04/20/2023 Jessica Reyna Plan Of Treatment No Information Progress Notes * Joe BRUNNERreaDOB: [birth year] (24 yo F)Acc No.[id number]:04/20/2023 UNLOCKED PROGRESS NOTE Patient: Tiffany MEDINA Provider: Kely Reyna, MSN, SUPPLY CHAIN DEVELOPMENT MANAGER-BC, PMHNP-BC :2000 A ge:22 Y S ex:Female Date:04/20/2023 [address] [facility] Subjective: * Chief Complaints: * 1 . 2 Month Psych F/U & Med Refill. * Medical History: Objective: * Vitals: Assessment: Plan: * Treatment: * * Electronic signature of Jessica Reyna , [id number] on 08/25/2024 at 07:02 PM CDT Sign off status: Pending * Provider: Kely Reyna, MSN, SUPPLY CHAIN DEVELOPMENT MANAGER-BC, PMHNP-BC Date: 1 06/20/2022 Generated for Eladio ng/Yeyo/eTransmitting on: 0 08/25/2024 07:02 PM CDT
--- OUTSIDE RECORDS SUMMARY | 2024-08-25 19:02 | XMS_ITS | Clinical Summary ---
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 Delivery record requested (2021, [facility]) Lactic acidosis 09/30/2023 10/19/2023 Supervision of other normal , antepartum 08/28/2023 10/19/2023 History of pre-eclampsia 08/28/202311/2023 Immunizations Immunization Administration Dates Next Due HPV, Quadrivalent 12/14/2015 Influenza, Quadrivalent, Spl it, Preservative Free, Intramuscular 06/01/2018 MMR 02/24/2024(Deferred: Contraindic ation) Tdap 02/24/2024(Deferred: Patient Ref used) Varicella 02/24/2024(Deferred: Patient Ref used) Medical History Medical History Date Comments Depression Anxiety Migraine Preeclampsia with both G1 and G2 Family History Medical History Relation Name Comments Diabetes Maternal Grandmother Diabetes Mother's Sister Breast cancer Neg Hx Colon cancer Neg Hx Ovarian cancer Neg Hx Uterine cancer Neg Hx Relation Name Status Comments Maternal Grandmother Mother's Sister Social History Tobacco Use Types Packs/Day Years Used Date Smoking Tobacco: Never Smokeless Tobacco: Never Tobacco Cessation:Counseling Given: Not Answered [facility] [employer] Answer Date Recorded In the past 12 months has e [employer], oil, or water [employer] threatened to shut off services in your [...] 02/22/2024 How often do you attend chur or bahai services? Never 02/22/2024 Do you belong to any clubs o r organizations such as zoroastrianism groups, unions, fraternal or athletic groups, or [...] care, and heating? Not very hard 02/22/2024 [facility] [place] of Occupat ional Health - Occupational Stress [...] place to sleep or slept in a half-way (including now)? No 10/01/2023 [place] Depression Scale Answer Date Recorded [place] Depression Scale Total 6 04/07/2024 The thought [...] any time in the past 12 m ont, were you homeless or living in a half-way (including now)? No 02/22/2024 Personal Safety Answer Date Recorded Have you ever been in or are you currently in a harmful physical or emotional relationship or is someone making you feel afraid or unsafe? 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 Gender Identity Female 09/09/2023 5:58 PM CDT Sexual Orientation Not on file Obstetrics History Para Term AB IAB SAB Ectopic Multiple Livin g Live Births 3 3 3 0 0 0 0 0 0 3 3 Date Outcome GA Total Labor Labor/2nd/3rd Weight Sex Type Anes PTL Kavitha A1 A5 Name Clin 2019 Term 37w 0d 2.41 kg (5 lb 5 oz) M Vag-Sp ont Epidur al N Livin g Complications:Pre eclampsia Delivery Location:[facility] 2021 Term 39w 0d 3.289 kg (7 lb 4 oz) M Vag-Sp ont Epidur al N Livin g Complications:Pre eclampsia Delivery Location:[facility] 2023 Term 38w 4d 0h 13m 0h 09m/0h 04m 2.64 kg (5 lb 13.1 oz) M Vagina l Epidur al N Livin g 5 8 Victo r Astrid Tovar, CNM Complications: Intolera nce Delivery Location:[facility] Main C ampus ([facility]) Last Filed Vital Signs Vital Sign Reading [...] 04/07/2024 11:40 AM CDT Plan of Treatment Health Maintenance Due Date Last Done Comments DTaP/Tdap/Td Vaccine (1 - Tdap) 2009 Varicella Vaccines (1 of 2 - 13+ 2-dose series) 08/24/2011 HPV Vaccines (2 - 3-dose series) 01/11/2016 12/14/19 16 Hepatitis B Screening 2016 Regular Well Visit/Exam 18-64 2016 Influenza Vaccine (#1) 2024 06/01/2018 Cervical Cancer Screening 08/27/2024 08/28/2023 Depression Screening 04/07/2025 04/07/2024 Hepatitis C Screening Completed 08/28/2023 Pneumococcal vaccine <65 Aged Out No longer eligible based on [...] ORD ERABLES Edited Result - Final MONICA [address] [facility] Department [place] [address] * Pap with reflex to High Risk HPV and Genotyping (Cytology Component) (08/28/2023 1:38 PM CDT) Thin prep (Pap test) 08/28/2023 1:38 PM CDT 08/30/2023 10:41 PM CDT Narrative PATHOLOGY [facility] - 09/02/2023 8:45 AM CDT EPIC results best viewed via link to PDF [facility] [place] [address] Note to Patients: This report may contain [...] : 2000 (Age: 23) Address: [place] [address] [facility] #: [id number] Service: DEFAULT Location: Patient Type: [facility] SPECIMEN Taken: 08/28/2023 Received: 08/30/2023 Accessioned: 08/31/2023 [...] clinical information and biopsy results as indicated. [facility] Clinical Laboratory Improvement Amendments (CLIA) mandate that cytologic and histologic results be correlated for laboratory quality controller & improvement standards. FOR ALL HIGH-GRADE CASES [...] determined by the Surgical Pathology Department at [facility] as part of an ongoing fiberglass quality technician program and in compliance with federally mandated [...] determined by the Surgical Pathology Department of [facility]. It has not been cleared or approved by the U. S. Food and Drug Administration. Heidi Rogers MD LAB CYTOLOGY ORDERABLES Final Result [facility] from Last 3 Months or Most Recently Relevant to Health Maintenance Insurance [facility] [employer] [facility] Address: [address] [place] [address] [facility] [employer] ACCESS [place]ICE [place] [address] [facility] ACCESS CHOICE [facility] Advance Directives For more information, please contact: [phone] * Full Code (Latest Code Status on File) Date Activated Date Inactivated Comments 02/23/2024 4:28 AM 02/24/2024 6:31 PM * Full Code Date Activated Date Inactivated Comments 02/22/2024 4:50 PM 02/23/2024 4:28 AM Full CPR in c ase of cardiopulmonary arrest * Full Code Date Activated Date Inactivated Comments 09/30/2023 9:38 PM 10/02/2023 6:50 PM Care Teams Media Clerk Relationship Specialty Start Date End Date No, Physician PCP - General 09/09/23 No, Physician 09/09/23
--- OUTSIDE RECORDS SUMMARY | 2024-08-25 19:02 | XMS_ITS ---
Author Organization [facility] Address [address] [place] [address] Care Team Providers Care Brush Cutter Name Role Phone Maribell Jessica Primary Care Provider [phone] KangSandhya aldridgeyovanny Iglesias [phone] REASON FOR VISIT Refill Medications Medication SIG (Take, Route, Fr equency, Duration) Notes Start Date End Date Status Sertraline HCl 100 MG TAKE 1 TABLET BY M OUTH EVERY DAY for 30 days Active Encounters Encounter Location Date Provider Diagnosis [address] [place] [address] 03/08/2024 Eric Kang Major depressive disorder, remission status unspecified, unspecified whether recurrent F32.9 Assessments Encounter Date Diagnosis (ICD Code) Assessment Notes Treatment Notes Treatment Clinical Notes Section Notes 03/08/2024 Major depressive disorder, remission status unspecified, unspecified whether recurrent (ICD-10 - F32.9) Plan Of Treatment Medication Medication Name Sig Start Date Stop Date Notes Sertraline HCl 100 MG TAKE 1 TABLET BY M OUTH EVERY DAY for 30 days Progress Notes * Joe BRUNNERreaDOB: [birth year] (23 yo F)Acc No.[id number]:03/08/2024 Patient: Tiffany MEDINA :2000 A ge:23 Y S ex:Female Address:[address] [place] [address] * Refills Refill Sertraline HCl Tablet, 100 MG, 30 Tablet, TAKE 1 TABLET BY MOUTH EVERY DAY, 30 days, Refills=1 * true * Date: Generated for Printi ng/Yeyo/Kylee on: 0 08/25/2024 07:01 PM CDT
--- OUTSIDE RECORDS SUMMARY | 2024-08-25 19:02 | XMS_ITS | Patient Health Record ---
Author Organization [facility] Address [address] [place] [address] Care Team Providers Care Winding Operator Name Role Phone Jessica Reyna Primary Care Provider [phone] Eric Kang Unavailable [phone] Allergies No Known Allergies Reason For Referral No Information Medications Medication SIG (Take, Route, Fr equency, Duration) Notes Start Date End Date Status Sertraline HCl 100 MG TAKE 1 TABLET BY M OUTH EVERY DAY for 30 days Active Social History Tobacco Use: Social History Observation Description Date Details (start date - stop date) Never Smoker NA - NA Dont use, Tobacco Use/Smoking Question Answer Notes Are you a nonsmoker Section Notes: No recent per PDMP No recent per PDMP No recent per PDMP No recent per PDMP No recent per PDMP No recent per PDMP Problems Problem Type SNOMED Code ICD Code Onset Dates Problem Status W/U Status Risk Notes Problem Major depressive disorder (360213299) MDD (major depressive disorder) (F32.9) Active confirmed Problem Difficulty concentrating (R41.840) Active confirmed Encounters Encounter Location Date Provider Diagnosis [address] [place] [address] 03/08/2024 Eric Kang Major depressive disorder, remission status unspecified, unspecified whether recurrent F32.9 Assessments Encounter Date Diagnosis (ICD Code) Assessment Notes Treatment Notes Treatment Clinical Notes Section Notes 03/08/2024 Major depressive disorder, remission status unspecified, unspecified whether recurrent (ICD-10 - F32.9) Plan Of Treatment No Information Insurance Providers Payer Name Payer Address Payer Phone Subscriber Number Group Number Insured Name Patient Relationship to Insured Coverage Start Date Coverage End Date [facility] Plan [address] [place] [address] [address] [place] [address] [id number] 2 Tiffany Brunner Self - patient is the insured 2 [facility]health [address] [facility] [address] [place] [address] [id number] 2 Tiffany Brunner Self - patient is the insured 2 Medical (General) History Hospitalization History Reason Date(Month/Year) child 10/2021
--- OUTSIDE RECORDS SUMMARY | 2024-08-25 19:02 | XMS_ITS | Encounter Summary ---
Author Organization [facility] Address [facility] [place] [address] Care Team Providers Care Lap Hand Tool Name Role Phone Vania Ley MD Primary Care Provider [phone] Encounter Details Date Type Department Care Team (Late st Contact Info) Description 07/05/2019 Hospital Follow-up Call [facility] Telemetry [address] [place], [place] [id number] Liliya Zheng, Cannoneer Social History Tobacco Use Types Packs/Day Years Used Date Smoking Tobacco: Former Cigarettes Smokeless Tobacco: Never Alcohol Use Standard Drinks/Week Comments No 0 (1 standard drink = 0.6 oz pur e alcohol) Comments Yes Sex and Gender Information Value Date Recorded Sex Assigned at Not on file Legal Sex Female 7:36 PM CDT Gender Identity Not on file Sexual Orientation Not on file documented as of this encounter Functional Status * RETIRED Are you deaf or do you have serious difficulty hearing Answer Date of Assessment Author Status No 06/28/2019 2:44 AM GLOBE CHANGER Activ e * RETIRED Are you blind or do you have serious difficulty seeing, even when wearing glasses? Answer Date of Assessment Author Status No 06/28/2019 2:44 AM GLOBE CHANGER Acti ve * Do you have serious difficulty walking or climbing stairs? Answer Date of Assessment Author Status No 06/28/2019 2:44 AM Sophy Low RN Active * Do you have difficulty dressing or bathing? Answer Date of Assessment Author Status No 06/28/2019 2:44 AM Sophy Low RN Active * Because of a physical, mental, or emotional condition, do you have difficulty doing errands alone such as visiting a doctor's office or shopping? Answer Date of Assessment Author Status No 06/28/2019 2:44 AM Sophy Low RN Active documented as of this encounter Mental Status * Because of a physical, mental, or emotional condition, do you have serious difficulty concentrating, remembering, or making decisions? Answer Entry Date Author Status No 06/28/2019 2:44 AM Sophy Low RN Active documented in this encounter Plan of Treatment Not on file documented as of this encounter Visit Diagnoses Not on filedocumented in this encounter Care Teams Lap Hand Tool Relationship Specialty Start Date End Date Vania Ley MD PCP - General 01/06/17 documented as of this encounter
--- OUTSIDE RECORDS SUMMARY | 2024-08-25 19:02 | XMS_ITS | Encounter Summary ---
Author Organization [facility] Address [address] [place] [address] Care Team Providers Care Ramp Service Employee Name Role Phone Vania Ley MD Primary Care Provider [phone] Encounter Details Date Type Department Care Team (Late st Contact Info) Description 11/10/2019 Hospital Follow-up Call [facility] [place] [address] Leonela Wang RN Social History Tobacco Use Types Packs/Day Years Used Date Smoking Tobacco: Former Cigarettes Q uit: 12/03/2018 Smokeless Tobacco: Never Alcohol Use Standard Drinks/Week Comments No 0 (1 standard drink = 0.6 oz pur e alcohol) Humiliation, Afraid, Rape, and Kick questionnair e Answer Date Recorded Fear of Current or Ex-Partner No Emotionally Abused No 11/03/2019 Physically Abused No 11/03/2019 Sexually Abused No 11/03/2019 Comments No Sex and Gender Information Value Date Recorded Sex Assigned at Not on file Legal Sex Female 7:36 PM CDT Gender Identity Not on file Sexual Orientation Not on file COVID-19 Exposure Response Date Recorded In the last month, have you been in contact with someone who was confirmed or suspected to have Coronavirus / COVID-19? No / Unsure 11/03/2019 8:56 AM CDT documented as of this encounter Functional Status * RETIRED Are you deaf or do you have serious difficulty hearing Answer Date of Assessment Author Status No 11/04/2019 5:00 AM CDT Activ e * RETIRED Are you blind or do you have serious difficulty seeing, even when wearing glasses? Answer Date of Assessment Author Status No 11/04/2019 5:00 AM CDT Activ e * Do you have serious difficulty walking or climbing stairs? Answer Date of Assessment Author Status No 11/04/2019 5:00 AM CDT Gloria Costa RN Active * Do you have difficulty dressing or bathing? Answer Date of Assessment Author Status No 11/04/2019 5:00 AM CDT Gloria Costa RN Active * Because of a physical, mental, or emotional condition, do you have difficulty doing errands alone such as visiting a doctor's office or shopping? Answer Date of Assessment Author Status No 11/04/2019 5:00 AM CDT Gloria Costa RN Active documented as of this encounter Mental Status * Because of a physical, mental, or emotional condition, do you have serious difficulty concentrating, remembering, or making decisions? Answer Entry Date Author Status No 11/04/2019 5:00 AM CDT Gloria Costa RN Active documented in this encounter Plan of Treatment Not on file documented as of this encounter Visit Diagnoses Not on filedocumented in this encounter Care Teams Ramp Service Employee Relationship Specialty Start Date End Date Vania Ley MD PCP - General 01/06/17 documented as of this encounter
[2024-08-25 19:10] VITALS: BP 126/77; PULSE 98; RESP 18; TEMP 36.8; O2SAT 99
--- NOTE | 2024-08-25 19:25 | ED.LOWEXIN ---
HPI - Extremity Injury (Lower) General Chief Complaint: Extremity Injury, Lower Stated Complaint: RT Foot Injury Time Seen by Provider: 08/25/24 19:25 Source: patient Mode of arrival: ambulatory Limitations: no limitations History of Present Illness HPI Narrative: 24-year-old female presents with bruising, swelling and pain to right 2nd toe. Patient states she was walking in [place] and right toe hit against a rock. Patient states she had numbness to her toe at that time but no pain. Noticed after getting out of the [place] that her right toe was bent sideways. States she flexed toes and it popped back in place . after toe popped back into place pain started. All systems reviewed and negative except as noted above. Related Data Home Medications ?Medication ?Instructions ?Recorded ?Confirmed ?Last Taken ?Type vit#24-iron amino acid 1 tablet PO DAILY 09/09/23 09/09/23 Unknown History chelat-folic acid 30 mg-975 mcg tablet sertraline 100 mg tablet 100 mg PO DAILY 09/09/23 09/09/23 Unknown History Allergies Allergy/AdvReac Type Severity Reaction Status Date / Time No Known Allergies Allergy Verified 08/25/24 19:15 Review of Systems Review of Systems: CONSTITUTIONAL: Denies fever, chills, or sweats. EYES: Denies visual changes, redness, or discharge. ENT: Denies rhinorrhea, congestion, sore throat, or otalgia. CARDIOVASCULAR: Denies chest pain, palpitations, or edema. RESPIRATORY: Denies cough or dyspnea. GASTROINTESTINAL: Denies abdominal pain, nausea, vomiting, or diarrhea. GENITOURINARY: Denies dysuria or hematuria. SKIN: Denies rash or itching. MUSCULOSKELETAL: Denies back pain, joint pain, or myalgia. Reports right 2nd toe pain, swelling and bruising NEUROLOGIC: Denies headache, numbness, or weakness. PSYCHIATRIC: Denies anxiety or depression. All other systems reviewed are negative, except as documented in HPI. PMFSH Comments At time of signature, agree with nursing past medical, surgical, social and family history. There is no relevant family history pertinent to the presenting complaint. Exam Narrative: GENERAL: This is a well-nourished, well-developed patient, in no apparent distress. HEAD: normocephalic, atraumatic. EYES: PERRL. Sclera clear/white. Vision is grossly intact. EARS: External ears normal NOSE: External nose normal NECK: Neck supple, non-tender without lymphadenopathy, masses or thyromegaly. CARDIOVASCULAR: Regular rate and rhythm without murmurs, gallops, or rubs. RESPIRATORY: Clear to auscultation. Breath sounds equal bilaterally. No wheezes, rales, or rhonchi. SKIN: warm, Dry, intact with no suspicious lesions or rash, good texture and turgor. NEURO: awake, alert, and oriented to person, place and time. There were no obvious focal neurologic abnormalities. EXTREMITIES: bruising, swelling and pain to right toe on palpation CMS intact Course Course Level of Care: Express Care Visit Vital Signs Vital signs: Vital Signs Temperature 36.8 C 08/25/24 19:10 Pulse Rate 98 08/25/24 19:10 Respiratory Rate 18 08/25/24 19:10 Blood Pressure 126/77 08/25/24 19:10 Pulse Oximetry 99 08/25/24 19:10 Oxygen Delivery Room Air 08/25/24 19:10 Temperature 36.8 C 08/25/24 19:10 Pulse Rate 98 08/25/24 19:10 Respiratory Rate 18 08/25/24 19:10 Blood Pressure 126/77 08/25/24 19:10 Pulse Oximetry 99 08/25/24 19:10 Oxygen Delivery Room Air 08/25/24 19:10 reviewed MDM - Extremity Injury (Lower) MDM Narrative Medical decision making narrative: x-ray of right 2nd shows shows nondisplaced fracture. Will place and postop shoe. Recommend ibuprofen or Tylenol for pain. Recommend follow-up with PCP to assess healing. Please be advised this is a medical document. It is intended for xtty-sb-nzei communication. It is written in medical language and may contain unfamiliar abbreviations or verbiage. Medical documents are intended to carry relevant information, facts as evident, and the clinical opinion of the practitioner at the time of the encounter. This report may have been done utilizing a voice recognition system. Attempts have been made to correct errors. However, there may be uncorrected grammatical, spelling, and recognition errors present. The file time of this note does not necessarily represent the time of service. Differential Diagnosis Differential diagnosis: Likely fracture of toe Imaging Data My impression: agree with radiologist Radiologist's impression: XR toe 2nd RT min 2V Ordering provider: Sophy Mireles NP History: . pain and swelling . Comparison: None. FINDINGS: BONES: Fracture of the bases of the middle phalanx of the second toe. JOINT SPACES: Normal. SOFT TISSUES: Normal. IMPRESSION: Undisplaced fracture at the base of the middle phalanx of the second toe. Discharge Plan Discharge Clinical Impression: Closed fracture of second toe of right foot Qualifiers: Encounter type: initial encounter Qualified Code(s): S92.501A - Displaced unspecified fracture of right lesser toe(s), initial encounter for closed fracture Patient Disposition: Home, Self-Care Condition: Stable Instructions: Toe Fracture (ED) Additional Instructions: The x-ray of your right 2nd toe showed a fracture. Take ibuprofen or Tylenol every 6-8 hours as needed for pain. Apply ice as needed for pain. Elevate when at rest. Wear postop shoe for comfort. Follow-up with your primary care physician in the next 3-4 weeks to assess healing. Patient Language: Indonesian Prescriptions: No Action sertraline 100 mg tablet 100 mg PO DAILY Complete 30-975 mg-mcg Tablet 1 tablet PO DAILY Follow-up/Referrals: PHYSICIAN,PATHOLOGY TECH [Primary Care Provider] - Time of Disposition: 19:57
== END 2024-08-25 20:03 | disposition home or self-care (01) ==
PROVIDERS: Emergency Provider Nurse Practitioner Family
DX: S92.501A Displaced unspecified fracture of right lesser toe(s), initial encounter for closed fracture (principal); W22.09XA Striking against other stationary object, initial encounter; Y92.828 Other wilderness area as the place of occurrence of the external cause
CPT/HCPCS: 73660; 99214; G0463